=== PATIENT | female | born 1955 | race Caucasian/White ===

== ENCOUNTER 2017-10-13 07:23 | Day surgery (SDC) | payer BC ==
[~2017-10-13 07:23] MED LIST: Lactated Ringers 1,000 ML IV SCH; Lidocaine 1%/Sod Bicarbonate in NS 8.4% 1 ML Syringe IDERM PRN; Sodium Chloride 0.9% 10 ML Syringe FLUSH PRN
--- NOTE | 2017-10-13 07:50 | PCM.PREANE ---
Preanesthetic Assessment - Procedure Proposed Procedure: Diagnostic EGD - Anesthesia/Transfusion/Family Hx Anesthesia History: No Prior Anesthesia Family History of Anesthesia Reaction: No Transfusion History: No Prior Transfusion(s) - Review of Systems General: No Symptoms Pulmonary: No Symptoms Cardiovascular: No Symptoms Gastrointestinal: No Symptoms Neurological: No Symptoms Other: Reports: None - Physical Assessment NPO Status Date: 10/12/17 NPO Status Time: 00:00 Pulse: 103 O2 Sat by Pulse Oximetry: 99 Respiratory Rate: 16 Blood Pressure: 145/81 Temperature: 37.2 C Height: 1.63 m Weight: 57.153 kg ASA Class: 2 Mental Status: Alert & Oriented x3 Airway Class: Mallampati = 1 Dentition: Reports: Normal Dentition, Parnell(s), Bridge Thyro-Mental Finger Breadths: 3 Mouth Opening Finger Breadths: 3 ROM/Head Extension: Full Lungs: Clear to Auscultation, Normal Respiratory Effort Cardiovascular: Regular Rate, Regular Rhythm - Allergies Allergies/Adverse Reactions: Allergies Allergy/AdvReac Type Severity Reaction Status Date / Time bee pollen Allergy Cannot Verified 10/12/17 12:57 Remember Penicillins Allergy Rash Verified 10/12/17 12:57 shrimp Allergy Cannot Verified 10/12/17 12:57 Remember Sulfa (Sulfonamide Allergy Rash Verified 10/12/17 12:57 Antibiotics) - Anesthesia Plan Pre-Op Medication Ordered: None - Acknowledgements Anesthesia Type Planned: MAC Pt an Appropriate Candidate for the Planned Anesthesia: Yes Alternatives and Risks of Anesthesia Discussed w Pt/Guardian: Yes Pt/Guardian Understands and Agrees with Anesthesia Plan: Yes PreAnesthesia Questionnaire HEENT History: Reports: Impaired Vision, Sinusitis Cardiovascular History: Reports: None Respiratory History: Reports: None Gastrointestinal History: Reports: Other (See Below) Other Gastrointestinal History: dysphagia Genitourinary History: Reports: None 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 Musculoskeletal History: Reports: None Neurological History: Reports: None Psychiatric History: Reports: None Endocrine/Metabolic History: Reports: None Hematologic History: Reports: None Immunologic History: Reports: None Oncologic (Cancer) History: Reports: None Dermatologic History: Reports: Other (See Below) Other Dermatologic History: left lower extremity cellulitis - Past Surgical History Head Surgeries/Procedures: Reports: None HEENT Surgical History: Reports: None Cardiovascular Surgical History: Reports: None Respiratory Surgical History: Reports: None GI Surgical History: Reports: None Female Surgical History: Reports: None Male Surgical History: Reports: None Endocrine Surgical History: Reports: None Neurological Surgical History: Reports: None Musculoskeletal Surgical History: Reports: None Oncologic Surgical History: Reports: None - SUBSTANCE USE Smoking Status *Q: Former Smoker Tobacco Use Within Last Twelve Months: No Second Hand Smoke Exposure: No Days Per Week of Alcohol Use: 1 Number of Drinks Per Day: 1 Total Drinks Per Week: 1 Recreational Drug Use History: No - HOME MEDS Home Medications: Home Meds Pseudoephedrine HCl [Sudafed] 30 mg PO Q4H PRN 10/12/17 [History] - CURRENT (IN HOUSE) MEDS Current Meds: Current Medications Lactated Ringer's (Ringers, Lactated) 1,000 mls @ 125 mls/hr IV ASDIRECTED WILDER Stop: 10/13/17 23:00 Lidocaine/Sodium Bicarbonate (Buffered Lidocaine 1% In Ns 8.4%) 0.25 ml IDERM ONETIME PRN PRN Reason: Prior to IV Start Stop: 10/13/17 18:00 Sodium Chloride (Saline Flush) 10 ml FLUSH ASDIRECTED PRN PRN Reason: Keep Vein Open Stop: 10/13/17 18:00
[2017-10-13] MEDS ORDERED: Midazolam 1 MG/ML 2 ML SDV ONE (08:14)
[2017-10-13] MEDS ORDERED: Propofol 200 MG/20 ML SDV ONE (08:14)
[2017-10-13] MEDS ORDERED: Lidocaine 1% 4 ML ONE (08:14)
--- NOTE | 2017-10-13 08:36 | PCM.OPNOTE ---
- General Post-Op/Procedure Note Date of Surgery/Procedure: 10/13/17 Operative Procedure(s): Esophagogastroduodenoscopy with proximal and distal esophageal biopsies Findings: Normal EGD with occasional duodenal gastric bile reflux Pre Op Diagnosis: Dysphagia Post-Op Diagnosis: Same Anesthesia Technique: MAC, Moderate Sedation Primary Surgeon: Jono Casillas Pathology: Proximal and distal esophageal biopsies EBL in mLs: 0 Complications: None Condition: Good Free Text/Narrative:: After adequate IV sedation and analgesia was obtained the patient was placed on her left side with monitoring. Through a bite-block lubricated upper endoscope was inserted into the esophagus then advanced under direct vision to the stomach. Additional air was given here. The antrum and pylorus was identified followed by passage of the endoscope into the second part of the duodenum. This structure as well as the pylorus was endoscopically normal with no mass lesions or inflammatory changes. The antrum was endoscopically normal. In the retroflexed view the fundic and cardiac regions were normal. There was no hiatal hernia. The body of the stomach was unremarkable with normal rugal folds. The gastric motility was grossly normal as well. There was a small amount of duodenal gastric bile reflux. I then withdrew the scope to the GE junction which was sharp and about 35 cm from the incisors. There were no inflammatory changes in this area that were seen. There was no stricturing or scarring. Two random biopsy was taken. The body of the esophagus was endoscopically normal. In the proximal third of the esophagus which was endoscopically normal I took 2 random biopsies for review. The vocal cords were briefly visualized on extubation and were normal. Air was removed as I finished the procedure. Photographs were taken for the patient and for the medical record.
== END 2017-10-13 09:15 | disposition home or self-care (01) ==
LOC: JD.SDS 07:23
PROVIDERS: ATTEND Surgery
DX: K83.8 Other specified diseases of biliary tract (principal); I51.89 Other ill-defined heart diseases; L03.116 Cellulitis of left lower limb; K29.60 Other gastritis without bleeding; K20.9 Esophagitis, unspecified; Z88.0 Allergy status to penicillin; Z88.2 Allergy status to sulfonamides; Z91.030 Bee allergy status; Z79.899 Other long term (current) drug therapy; Z91.013 Allergy to seafood
CPT/HCPCS: 43239; J2250; J7120; J2704

== ENCOUNTER 2018-11-29 07:09 | Day surgery (SDC) | payer BC ==
[2018-11-29] MEDS ORDERED: Propofol 200 MG/20 ML SDV ONE (07:17)
[2018-11-29] MEDS ORDERED: Midazolam 1 MG/ML 2 ML SDV ONE (07:18)
[2018-11-29] MEDS ORDERED: fentaNYL 100 MCG/2 ML SDV ONE (07:18)
--- NOTE | 2018-11-29 07:28 | PCM.PREANE ---
Preanesthetic Assessment - Anesthesia/Transfusion/Family Hx Anesthesia History: No Prior Anesthesia Family History of Anesthesia Reaction: No Transfusion History: No Prior Transfusion(s) - Review of Systems General: No Symptoms Pulmonary: No Symptoms Cardiovascular: No Symptoms Gastrointestinal: No Symptoms Neurological: No Symptoms Other: Reports: None - Physical Assessment NPO Status Date: 11/28/18 NPO Status Time: 00:00 Pulse: 72 O2 Sat by Pulse Oximetry: 100 Respiratory Rate: 16 Blood Pressure: 127/74 Temperature: 37.1 C Height: 1.63 m Weight: 52.208 kg ASA Class: 2 Mental Status: Alert & Oriented x3 Airway Class: Mallampati = 1 Dentition: Reports: Normal Dentition, [place](s) Thyro-Mental Finger Breadths: 3 Mouth Opening Finger Breadths: 3 ROM/Head Extension: Full Lungs: Clear to Auscultation, Normal Respiratory Effort Cardiovascular: Regular Rate, Regular Rhythm - Allergies Allergies/Adverse Reactions: Allergies Allergy/AdvReac Type Severity Reaction Status Date / Time bee pollen Allergy Itching Verified 11/28/18 17:05 Penicillins Allergy Rash Verified 11/28/18 17:05 shellfish derived Allergy Itching Verified 11/28/18 17:05 Sulfa (Sulfonamide Allergy Rash Verified 11/28/18 17:05 Antibiotics) - Blood Blood Available: No Product(s) Available: None - Anesthesia Plan Pre-Op Medication Ordered: None - Acknowledgements Anesthesia Type Planned: MAC Pt an Appropriate Candidate for the Planned Anesthesia: Yes Alternatives and Risks of Anesthesia Discussed w Pt/Guardian: Yes Pt/Guardian Understands and Agrees with Anesthesia Plan: Yes PreAnesthesia Questionnaire HEENT History: Reports: Impaired Vision, Sinusitis Cardiovascular History: Reports: None Respiratory History: Reports: None Gastrointestinal History: Reports: GERD, Other (See Below) Other Gastrointestinal History: dysphagia Genitourinary History: Reports: None 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 Musculoskeletal History: Reports: None Neurological History: Reports: None Psychiatric History: Reports: None Endocrine/Metabolic History: Reports: None Hematologic History: Reports: None Immunologic History: Reports: None Oncologic (Cancer) History: Reports: None Dermatologic History: Reports: Other (See Below) Other Dermatologic History: left lower extremity cellulitis - Past Surgical History Head Surgeries/Procedures: Reports: None HEENT Surgical History: Reports: None Cardiovascular Surgical History: Reports: None Respiratory Surgical History: Reports: None GI Surgical History: Reports: EGD Female Surgical History: Reports: None Male Surgical History: Reports: None Endocrine Surgical History: Reports: None Neurological Surgical History: Reports: None Musculoskeletal Surgical History: Reports: None Oncologic Surgical History: Reports: None - SUBSTANCE USE Smoking Status *Q: Former Smoker Tobacco Use Within Last Twelve Months: No Second Hand Smoke Exposure: No Days Per Week of Alcohol Use: 1 Number of Drinks Per Day: 0 Total Drinks Per Week: 0 Recreational Drug Use History: No - HOME MEDS Home Medications: Home Meds . [No Known Home Meds] 11/28/18 [History] - CURRENT (IN HOUSE) MEDS Current Meds: Current Medications Lactated Ringer's (Ringers, Lactated) 1,000 mls @ 125 mls/hr IV ASDIRECTED WILDER Stop: 11/29/18 23:00 Lidocaine/Sodium Bicarbonate (Buffered Lidocaine 1% In Ns 8.4%) 0.25 ml IDERM ONETIME PRN PRN Reason: Prior to IV Start Stop: 11/29/18 18:00 Sodium Chloride (Saline Flush) 10 ml FLUSH ASDIRECTED PRN PRN Reason: Keep Vein Open Stop: 11/29/18 18:00 Discontinued Medications Fentanyl (Sublimaze) Confirm Administered Dose 100 mcg .ROUTE .STK-MED ONE Stop: 11/29/18 07:19 Midazolam HCl (Versed 1 Mg/Ml) Confirm Administered Dose 2 mg .ROUTE .STK-MED ONE Stop: 11/29/18 07:19 Propofol (Diprivan 20 Ml) Confirm Administered Dose 200 mg .ROUTE .STK-MED ONE Stop: 11/29/18 07:18
[2018-11-29] MEDS ORDERED: Lidocaine 1% 4 ML ONE (07:35)
--- NOTE | 2018-11-29 14:19 | OR ---
DATE OF OPERATION: 11/29/2018 SURGEON: Beba Murray MD PREOPERATIVE DIAGNOSIS: Screening colonoscopy. POSTOPERATIVE DIAGNOSIS: Normal colonoscopy. OPERATION PERFORMED: Colonoscopy. ANESTHESIA: IV sedation. ESTIMATED BLOOD LOSS: None. BRIEF HISTORY: This is a very pleasant 63-year-old female, here for her colonoscopy. I had the opportunity to discuss the risks and benefits preoperatively. She has agreed to proceed. DESCRIPTION OF PROCEDURE: The patient was taken to the operating room. Time-out was performed. She was placed with her left side down with a pillow between her knees. On perianal exam, there was just a small little external skin tag. On rectal exam, there was no gross mass. I was then able to begin advancement of the scope. This is a very thin lady and interestingly enough, she had pretty steep turns, but I was able to very cautiously meander the scope and get it all the way to the ileocecal valve and to see the appendiceal orifice. I then came back slowly and clearly could see that her mucosa was absolutely normal. There was no signs of diverticular disease anywhere throughout her colon. The bowel prep was superb. The ascending, transverse, and descending all were without pathology. I was able to continue down into the sigmoid and into the rectal area. She is such a small woman that I was unable to retroflex the scope to look at the anus, but I was able to distend it and I could get a very nice look at her rectal mucosa. Everything looked normal. The discharge plan for this patient will be that she will not need another colonoscopy for 10 years unless such time things should change. She is not to drive today. She tolerated the procedure well. MMODAL /[id number]
== END 2018-11-29 09:02 | disposition home or self-care (01) ==
LOC: JD.SDS 07:09
PROVIDERS: ATTEND Surgery
DX: Z12.11 Encounter for screening for malignant neoplasm of colon (principal); K64.4 Residual hemorrhoidal skin tags; Z87.891 Personal history of nicotine dependence; Z88.0 Allergy status to penicillin; Z88.2 Allergy status to sulfonamides
CPT/HCPCS: 45378; J2001; J2250; J2704; J3010; J7120; 00812

== ENCOUNTER 2025-02-15 06:00 | Day surgery (SDC) | payer MEDICARE, BC ==
[~2025-02-15 06:00] MED LIST changes: -Lactated Ringers 1,000 ML IV SCH; -Lidocaine 1%/Sod Bicarbonate in NS 8.4% 1 ML Syringe IDERM PRN; +Sodium Chloride 0.9% 10 ML Syringe FLUSH SCH
[2025-02-15] MEDS ORDERED: Bupivacaine 0.25% 10 ML SDV ONE (06:12)
[2025-02-15] MEDS ORDERED: Propofol 200 MG/20 ML SDV ONE (06:15)
[2025-02-15] MEDS: Lactated Ringers 1,000 ML IV SCH (06:15)
[2025-02-15] MEDS ORDERED: Lidocaine 1% 5 ML VIAL ONE (06:16)
[2025-02-15] MEDS ORDERED: ceFAZolin 2 GM Vial ONE (07:00)
[2025-02-15] MEDS ORDERED: Triamcinolone Acetonide 40 MG/ML 1 ML SDV ONE (07:05)
[2025-02-15] MEDS: Bupivacaine 0.25% 10 ML SDV ONE (07:15)
[2025-02-15] MEDS: Lidocaine 1% 10 ML MDV ONE (07:15)
== END 2025-02-15 08:05 | disposition home or self-care (01) ==
LOC: JD.SDS 06:00
PROVIDERS: ATTEND Orthopaedic Surgery
DX: M65.331 Trigger finger, right middle finger (principal); G56.02 Carpal tunnel syndrome, left upper limb; Z86.16 Personal history of COVID-19; Z88.0 Allergy status to penicillin; Z88.2 Allergy status to sulfonamides; Z91.030 Bee allergy status; Z87.891 Personal history of nicotine dependence; Z79.899 Other long term (current) drug therapy
CPT/HCPCS: 26055; 64721; J0665; J0690; J2003; J2704; J3301; J7120; 01810